=== PATIENT | female | born 1965 | race Two or more races ===

== ENCOUNTER 2017-11-25 06:19 | Day surgery (SDC) | payer BC ==
[~2017-11-25] VITALS: Ht 160 cm; Wt 81.6 kg
[2017-11-25] VITALS (8 sets, daily range): BP systolic 117–135; BP diastolic 66–82
--- NOTE | 2017-11-25 06:45 | Anethesia Preoperative Eval ---
Anesthesia Pre-op PMH/ROS General Date of Evaluation: November 25, 2017 Time of Evaluation: 07:11 Anesthesiologist: ASA Score: ASA 2 Mallampati Score Class I : Soft palate, uvula, fauces, pillars visible Class II: Soft palate, uvula, fauces visible Class III: Soft palate, base of uvula visible Class IV: Only hard plate visible Mallampati Classification: Class II Surgeon: brooke Diagnosis: abd pain Surgical Procedure: egd and colonoscopy Anesthesia History: none Family History: no anesthesia problems Allergies: Coded Allergies: No Known Allergies (Unverified , 11/22/17) Medications: see eMAR Past Medical History Cardiovascular: Reports: HTN; Denies: CAD, [place], valve dz, arrhythmia, other Gastrointestinal/Genitourinary: Reports: GERD; Denies: CRI, ESRD, other Neurologic/Psychiatric: Denies: dementia, CVA, depression/anxiety, TIA, other Endocrine: Denies: DM, hypothyroidism, steroids, other HEENT: Denies: cataract (L), cataract (R), glaucoma, [place] (L), [place] (R), other Hematology/Immune: Denies: anemia, DVT, bleeding disorder, other Musculoskeletal/Integumentary: Denies: OA, RA, DJD, DDD, edema, other PSxH Narrative: c/s Anesthesia Pre-op Phys. Exam Physician Exam see chart Constitutional: NAD Cardiovascular: RRR Respiratory: CTA Airway Exam Mallampati Score: Class II MO: full ROM: full Teeth: intact Anesthesia Pre-op A/P Labs see chart Studies Pre-op Studies: EKG Risk Assessment & Plan Assessment: asa 2 Plan: MAC Status Change Before Surgery: No Pre-Antibiotics Drug: n/a Shira Harman M.D. November 25, 2017 06:45
[2017-11-25] MEDS ORDERED: BP MEDS (06:59)
[2017-11-25] MEDS ORDERED: Propofol 200mg/20ml IV ONE (07:00)
[2017-11-25] MEDS ORDERED: LR 1000ml 1,000 ML IVLG SCH ×2 (07:00→08:26)
[2017-11-25] MEDS ORDERED: Lidocaine 1% MPF 10mg/ml 5ml ONE (07:00)
[2017-11-25] MEDS ORDERED: LR 1000ml ONE (07:00)
--- NOTE | 2017-11-25 07:18 | Short Stay Surgery H&P ---
History of Present Illness History of Present Illness Chief Complaint please see typed H&P HPI Danielle Winter is a 52 year old female who was admitted on for GERD Patient History Allergies: Coded Allergies: No Known Allergies (Unverified , 11/22/17) Medication History Miscellaneous Medications [Bp Meds], (Reported) Physical Exam Vital Signs Last Vital Signs Date Time Temp Pulse Resp B/P (MAP) Pulse Ox O2 Delivery O2 Flow Rate FiO2 11/25/17 07:04 97.2 75 20 132/66 95 Room Air 97.2 Plan Attestation Are the patient's medical conditions optimized for surgery? GOPI CASTANON November 25, 2017 07:18
--- NOTE | 2017-11-25 07:23 | Pre-Procedure Note/Attestation ---
Pre-Procedure Note/Attestation Complete Prior to Procedure Planned Procedure: not applicable Procedure Narrative: egd/colon Indications for Procedure Pre-Operative Diagnosis: GERD, Screening Attestation I attest that I discussed the nature of the procedure; its benefits; risks and complications; and alternatives (and the risks and benefits of such alternatives ), prior to the procedure, with the patient (or the patient's legal players club representative). I attest that, if there was a reasonable possibility of needing a blood transfusion, the patient (or the patient's legal players club representative) was given the [facility] standardized written summary, pursuant to the Skyler [place] Blood Safety Act ([place] Health and Safety Code # 1645, as amended). I attest that I re-evaluated the patient just prior to the surgery and that there has been no change in the patient's H&P, except as documented below: GOPI CASTANON November 25, 2017 07:23
--- NOTE | 2017-11-25 08:14 | Endoscopy Procedure Note ---
Endoscopy Procedure Note General Indication for Procedure: GERD, Screen Procedures Performed: EGD, colonoscopy Operative Findings/Diagnosis: GERD, HH, desc polyp, rhoid Specimen: yes Pt Tolerated Procedure Well: Yes Estimated Blood Loss: none Anesthesia Anesthesiologist: Dr. Harman Anesthesia: MAC Medications Medication Given: see anesthesia record Inserted Devices Implant(s) used?: No GI Core Measures 50 yrs or older w/o bx or poly: Yes 10yrs. F/U not recommended: No If not recommended, why?: Above average risk 10 yrs. F/U needed: No 18 years or older w/prev. colo: No <3yrs. since last colonoscopy: No Med reason:<3 yrs.: System Reason:<3 yrs.: Last colonoscopy >= to 3yrs: Yes GOPI CASTANON November 25, 2017 08:14
--- NOTE | 2017-11-25 08:15 | Brief Operative Note ---
Immediate Post Operative Note Operative Note Chief Complaint: STEWART, screen Pre-op Diagnosis: GERD, Screening Procedure: EGD/bx, colon, snare Post-op Diagnosis: GERD, HH, Polyp at 40 in desc, rhoid, normal TI to 5 cm Post-op Diagnosis: same as pre-op Surgeon: brooke Anesthesiologist: Specimen: yes Complications: none Condition: stable Fluids: recorded Estimated Blood Loss: none Drains: none Implant(s) used?: No GOPI CASTANON November 25, 2017 08:15
--- NOTE | 2017-11-25 08:26 | Immediate Post-Op Evaluation ---
Immediate Post-Op Evalulation Immediate Post-Op Evalulation Procedure: egd and colonoscopy Date of Evaluation: November 25, 2017 Time of Evaluation: 08:13 IV Fluids: LR 500ml Blood Products: 0 Estimated Blood Loss: 0 Urinary Output: 0 Blood Pressure Systolic: 117 Blood Pressure Diastolic: 67 Pulse Rate: 71 Respiratory Rate: 16 O2 Sat by Pulse Oximetry: 94 Pain Score (1-10): 1 Nausea: No Vomiting: No Complications none Patient Status: awake, patent, none Hydration Status: adequate Drug: n/a Shira Harman M.D. November 25, 2017 08:26
--- NOTE | 2017-11-25 21:30 | Procedure Note ---
DATE OF PROCEDURE: 11/25/2017 GASTROENTEROLOGY PROCEDURE REPORT PROCEDURE: Upper gastrointestinal endoscopy with biopsy as well as screening colonoscopy with snare polypectomy. PRE-ENDOSCOPIC DIAGNOSES: 1. Symptoms began of refractory gastroesophageal reflux disease. 2. Need for screening colonoscopy. POST-ENDOSCOPIC DIAGNOSES: 1. A 2 to 3 cm hiatal hernia. 2. Gastroesophageal reflux disease with two linear erosions versus shallow ulcerations in the lower esophagus. 3. Status post random biopsy of the duodenum and the antrum. 4. Screening colonoscopy notable for a 4 to 5 mm pedunculated polyp in the descending colon and also a normal terminal ileum for about 5 cm. 5. Status post cold snare polypectomy of the descending colon polyp. 6. Mild internal hemorrhoids. DESCRIPTION OF PROCEDURE: The procedure, its risks, indications, alternatives, and possible complications including, but not limited to bleeding, infection, perforation, , and anesthesia complications were explained to the patient and an informed consent was obtained. The time-out was called and a diagnostic upper endoscope was introduced through the oropharynx and advanced to the duodenum. The endoscope was then gradually withdrawn and the mucosa examined carefully. The biopsies were obtained as described. The rectal exam was then done. The colonoscope was introduced into the rectum and advanced to 5 cm into the terminal ileum. The colonoscope was then gradually withdrawn and the mucosa examined carefully. Findings and procedures are as described above. Retroflex view of the rectum revealed mild internal hemorrhoids. The colonoscope was removed. The patient was sent to recovery in good condition. COMPLICATIONS: None. RECOMMENDATIONS: 1. Follow up biopsy results. 2. Reflux precautions. 3. Zantac 300 mg p.o. at bedtime. 4. Outpatient followup in two weeks. Thank you for asking me to participate in the care of this patient. . Omid Evans M.D. DR: NAT JOB#: [id number] CC:
[2017-11-26 08:31] VITALS: BP 128/77
--- NOTE | 2017-11-26 08:31 | 48 Hour Post Anesthesia Eval ---
Post Anesthesia Evaluation Procedure: egd and colonoscopy Date of Evaluation: November 25, 2017 Time of Evaluation: 09:20 Blood Pressure Systolic: 128 0: 77 Pulse Rate: 70 Respiratory Rate: 18 Temperature (Fahrenheit): 97 O2 Sat by Pulse Oximetry: 99 Airway: patent Nausea: No Vomiting: No Pain Intensity: 0 Hydration Status: adequate Mental Status/LOC: patient returned to baseline Follow-up care needed: ready to discharge Shira Harman M.D. November 26, 2017 08:31
== END 2017-11-25 09:25 | disposition home or self-care (01) ==
LOC: GAS 06:19
DX: Z12.11 Encounter for screening for malignant neoplasm of colon (principal); K44.9 Diaphragmatic hernia without obstruction or gangrene; K64.8 Other hemorrhoids; I10 Essential (primary) hypertension; E66.9 Obesity, unspecified; Z68.31 Body mass index [BMI] 31.0-31.9, adult; K29.50 Unspecified chronic gastritis without bleeding; K21.0 Gastro-esophageal reflux disease with esophagitis
CPT/HCPCS: 43239; 45380; J2704; J7120; 94003; 94150

== ENCOUNTER 2019-02-17 09:33 | Day surgery (SDC) | payer BC ==
[~2019-02-17] VITALS: Ht 154.9 cm; Wt 86.2 kg
[2019-02-17] VITALS (13 sets, daily range): BP systolic 89–124; BP diastolic 55–78
--- NOTE | 2019-02-17 06:55 | Pre-Procedure Note/Attestation ---
Pre-Procedure Note/Attestation Complete Prior to Procedure Planned Procedure: left Procedure Narrative: left knee scope, medial meniscectomy Indications for Procedure Pre-Operative Diagnosis: left knee medial meniscus tear Attestation I attest that I discussed the nature of the procedure; its benefits; risks and complications; and alternatives (and the risks and benefits of such alternatives ), prior to the procedure, with the patient (or the patient's legal senior sales representative). I attest that, if there was a reasonable possibility of needing a blood transfusion, the patient (or the patient's legal senior sales representative) was given the [facility] standardized written summary, pursuant to the [place] Blood Safety Act ([place] Health and Safety Code # 1645, as amended). I attest that I re-evaluated the patient just prior to the surgery and that there has been no change in the patient's H&P, except as documented below:none Ángel Rodriguez MD Feb 17, 2019 06:55
[~2019-02-17 09:33] MED LIST: BP MEDS; TENORMIN25 MG ORAL; ceFAZolin sod 1 GM in NS 55 ML IVPB ONE; celeBREX 200mg Cap **SURGERY PATIENTS ONLY ORAL ONE; oxyCONTIN 20mg tab ORAL ONE
[2019-02-17] MEDS ORDERED: oxyCONTIN 20mg tab ORAL ONE (10:37)
[2019-02-17] MEDS ORDERED: celeBREX 200mg Cap **SURGERY PATIENTS ONLY ORAL ONE (10:38)
[2019-02-17] MEDS ORDERED: D5 1/2NS 1,000 ML IV SCH (10:45)
[2019-02-17] MEDS ORDERED: HYDROmorphone 1mg/ml Carpuject SUBQ PRN (10:45)
[2019-02-17] MEDS ORDERED: Tylenol #3 tab (300mg/30mg) ORAL PRN (10:45)
[2019-02-17] MEDS ORDERED: HYDROcodone/Acetamin 5/325 tab ORAL PRN (10:45)
[2019-02-17] MEDS ORDERED: Ropivacaine 5mg/ml Vial 30ml INJ ONE (10:48)
--- NOTE | 2019-02-17 10:50 | Anethesia Preoperative Eval ---
Anesthesia Pre-op PMH/ROS General Date of Evaluation: Feb 17, 2019 Anesthesiologist: Davis ASA Score: ASA 2 Mallampati Score Class I : Soft palate, uvula, fauces, pillars visible Class II: Soft palate, uvula, fauces visible Class III: Soft palate, base of uvula visible Class IV: Only hard plate visible Mallampati Classification: Class II Surgeon: Michael Diagnosis: Left knee pain Surgical Procedure: Left knee arthroscopy Anesthesia History: none Family History: no anesthesia problems Allergies: Coded Allergies: No Known Allergies (Unverified , 02/16/19) Medications: see eMAR Patient NPO?: Yes NPO Date: Feb 16, 2019 NPO Time: 22:00 Past Medical History Cardiovascular: Reports: HTN; Denies: CAD, DC, valve dz, arrhythmia, other Pulmonary: Denies: asthma, COPD, JOSE, other Gastrointestinal/Genitourinary: Denies: GERD, CRI, ESRD, other Neurologic/Psychiatric: Denies: dementia, CVA, depression/anxiety, TIA, other Endocrine: Denies: DM, hypothyroidism, steroids, other HEENT: Denies: cataract (L), cataract (R), glaucoma, [place] (L), [place] (R), other Hematology/Immune: Denies: anemia, DVT, bleeding disorder, other Musculoskeletal/Integumentary: Denies: OA, RA, DJD, DDD, edema, other PSxH Narrative: c/s Anesthesia Pre-op Phys. Exam Physician Exam Last Vital Signs Date Time Temp Pulse Resp B/P (MAP) Pulse Ox O2 Delivery O2 Flow Rate FiO2 02/17/19 10:43 Room Air 02/17/19 10:17 97.0 76 20 118/62 97 Constitutional: NAD Cardiovascular: RRR Respiratory: CTA Airway Exam Mallampati Score: Class II MO: full ROM: full Anesthesia Pre-op A/P Labs see chart Studies Pre-op Studies: EKG - sr Risk Assessment & Plan Assessment: ASA II Plan: GA Status Change Before Surgery: No Pre-Antibiotics Drug: Ancef 2g Given Within 1 Hr of Incision: Yes Mile Mejia MD Feb 17, 2019 10:50
[2019-02-17] MEDS ORDERED: Midazolam 2mg/2ml Inj ONE (10:52)
[2019-02-17] MEDS ORDERED: fentaNYL 100 mcg/2 mL IV ONE (10:52)
[2019-02-17] MEDS ORDERED: Lidocaine 1% MPF 10mg/ml 5ml ONE (10:52)
[2019-02-17] MEDS ORDERED: Propofol 200mg/20ml IV ONE (10:52)
[2019-02-17] MEDS ORDERED: Dexamethasone 4mg/ml vial ONE (10:53)
[2019-02-17] MEDS ORDERED: LR 1000ml 1,000 ML IVLG SCH (10:54)
[2019-02-17] MEDS ORDERED: Metoclopramide 10mg/2ml Inj IVP PRN (11:00)
[2019-02-17] MEDS ORDERED: LORazepam Inj 2mg/ml 1ml IV PRN (11:00)
[2019-02-17] MEDS ORDERED: fentaNYL 100 mcg/2 mL IV PRN (11:00)
[2019-02-17] MEDS ORDERED: LR 1000ml ONE (11:00)
[2019-02-17] MEDS ORDERED: Midazolam 2mg/2ml Inj IVP PRN (11:00)
[2019-02-17] MEDS ORDERED: Ketorolac 30mg Inj IV PRN (11:00)
[2019-02-17] MEDS ORDERED: Sterile Water Irrig 1000ml IRRIG ONE (11:00)
[2019-02-17] MEDS ORDERED: Hydromorphone 0.5mg/0.5ml inj IVP PRN (11:00)
[2019-02-17] MEDS ORDERED: DiphenhydrAMINE 50mg/ml Inj IVP PRN (11:00)
[2019-02-17] MEDS ORDERED: NS Irrig 4000ml IRRIG ONE ×2 (11:47→12:00)
[2019-02-17] MEDS ORDERED: Ketamine 500mg Inj ONE (11:55)
--- NOTE | 2019-02-17 12:11 | Brief Operative Note ---
Immediate Post Operative Note Operative Note Chief Complaint: left knee pain Pre-op Diagnosis: left knee meniscus tear Procedure: left knee scope meniscectomy and chondroplasty Post-op Diagnosis: same as pre-op Findings: consistent w/pre-op dx studies Surgeon: md collette Machine Installer: tim rosas Anesthesiologist: md edson Anesthesia: general Specimen: none Complications: none Condition: stable Fluids: ns Estimated Blood Loss: minimal Drains: none Implant(s) used?: No Tanika Rosas Feb 17, 2019 12:11
--- NOTE | 2019-02-17 12:21 | Immediate Post-Op Evaluation ---
Immediate Post-Op Evalulation Immediate Post-Op Evalulation Procedure: Left knee arthroscopy Date of Evaluation: Feb 17, 2019 Time of Evaluation: 12:21 IV Fluids: 800 Blood Products: 0 Estimated Blood Loss: min Urinary Output: 0 Blood Pressure Systolic: 98 Blood Pressure Diastolic: 55 Pulse Rate: 84 Respiratory Rate: 16 O2 Sat by Pulse Oximetry: 93 Temperature (Fahrenheit): 97.6 Pain Score (1-10): 0 Nausea: No Vomiting: No Complications 0 Patient Status: awake, reacts, patent, none Hydration Status: adequate Drug: Ancef 2g Given Within 1 Hr of Incision: Yes Mile Mejia MD Feb 17, 2019 12:21
--- NOTE | 2019-02-17 12:21 | 48 Hour Post Anesthesia Eval ---
Post Anesthesia Evaluation Procedure: Left knee arthroscopy Date of Evaluation: Feb 17, 2019 Airway: patent Nausea: No Vomiting: No Hydration Status: adequate Cardiopulmonary Status: at baseline Mental Status/LOC: patient returned to baseline Post-Anesthesia Complications: 0 Follow-up care needed: ready to discharge Mile Mejia MD Feb 17, 2019 12:21
--- NOTE | 2019-02-17 17:30 | Operative Note - Dictated ---
DATE OF OPERATION: 02/17/2019 PREOPERATIVE DIAGNOSIS: Left knee posterior horn medial meniscus tearing. POSTOPERATIVE DIAGNOSES: 1. Left knee complex tear of the posterior horn body of the medial meniscus. 2. 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 3. Left knee patellofemoral arthritis with grade 4 chondromalacia measuring 1 x 1.5 cm in the trochlear groove with unstable chondral flap as well as diffuse degeneration on the medial lateral patellar facet. PROCEDURE: 1. Left knee arthroscopy and extensive intra-articular shaving. 2. Left knee partial medial meniscectomy. 3. Left knee patellofemoral as well as medial femoral chondroplasty. SURGEON: Ángel Rodriguez M.D. STUDENT MINISTRY PASTOR: Tanika Palma PA-C. Canoe Inspector Final was present during the actual operative portion of the case and was important and essential part of the operation. During the operation, the pizza hut assistant held and operated the arthroscopic camera for visualization, assisted by manipulating the leg to help with visualization, and helped with essential parts of the repair process as necessary such as operating surgical instruments under surgeon supervision, suture management, and wound closures. ANESTHESIOLOGIST: Dr. Cannon. ANESTHESIA: General LMA anesthesia. TOURNIQUET TIME: 30 minutes. ESTIMATED BLOOD LOSS: Minimal. COMPLICATIONS: None. SURGICAL INDICATION: The patient is a 53-year-old female, who sustained the above injury to her knee. The patient was treated non-operative initially, but this did not alleviate the patients symptoms. Therefore, after discussing all non-surgical and surgical options, and discussing all foreseeable risk and benefits of surgery, the patient opted for surgical treatment as described above. PATIENT POSITIONING: The patient was brought to the operating room table and placed supine. All pressure points were well padded. General Anesthesia was induced and a well padded tourniquet was placed on the thigh. The lateral post was placed and positioned to allow for opening of the medial compartment of the knee without placing pressure over the fibular head. Patients entire leg was prepped and draped in the usual sterile fashion. Time out was performed and preop abx was given and after exsanguinating the lower extremity, the tourniquet was inflated to 275 mm of mercury. EXAMINATION OF THE KNEE UNDER ANESTHESIA: Before prepping and draping the knee and while the patient was relaxed under general anesthesia, the knee was examined for ROM, and anterior and posterior, medial and lateral, posterolateral, and posteromedial instability. Pivot shift testing was performed. There was no evidence of loss of motion or instability and the pivot shift testing was negative. PORTAL PLACEMENT: The lateral portal was placed with the knee flexed to 90 degrees at the level of inferior border of the patella in line with the lateral border of the patella. A cm skin incision was made with an eleven blade, and using a blunt obturator, the capsule was gently penetrated. Sterile saline solution was then infused inside the knee with the aid of a pump set at 35 mm mercury pressure. Under direct visualization, placement of the medial portal was preliminary judged using a spinal needle, and it was subsequently established using the same technique as the lateral portal. Care was given not to injure the cutaneous branches of the medial Saphenous nerve or the subcutaneous veins. DIAGNOSTIC ARTHROSCOPY: The suprapatellar patellar pouch was visualized. There was no evidence of scar tissue or loose fragments. The medial and lateral patellar facets and trochlear groove articular cartilage was visualized. There was some chondral damage, which were degenerative over the medial and lateral patella with some fraying of the cartilage. The medial plica shelf and the corresponding medial femoral condyle articular cartilage were visualized. In the central trochlear, there was 1 x 1.5 cm central trochlear groove, cartilage loss, which was grade 4 with unstable chondral flap. There was no significantly thickening of the medial plica shelf and there were no kissing? lesion over the medial femoral condyle. The lateral gutter and the posterolateral corner of the knee were visualized. There were no loose bodies, and the popliteus tendon and other structures of the posterolateral corner of the knee were intact intra-articularly. At this point, the knee was placed in the figure of four position and the lateral compartment was entered. The lateral femoral condyle, lateral tibial plateau, and the anterior, body, and the posterior horn of the lateral meniscus were visualized and probed. The articular surfaces were intact and devoid of articular cartilage damage. The lateral meniscus was completely intact both on its undersurface and on the top. The knee was then placed at 90 degree and the ACL and PCL were visualized and probed. The ACL was completely intact on visualization and probing, and it had excellent tension. The PCL was completely intact on visualization and probing and it had excellent tension. The medial compartment was then entered and the medial femoral condyle, medial tibial plateau, and the anterior, body, and the posterior horn of the medial meniscus were visualized and probed. There was a chondral lesion over the medial femoral chondral measuring 2 x 3 cm. This was grade 3/4 chondromalacia. There was a complex tear of the posterior horn body of the medial meniscus including vertical and horizontal cleavage tear involving 30% of the medial meniscus. The medial gutter was visualized. There was no evidence of defect or loose fragments. The scope was then brought back to the patella femoral compartment. OPERATIVE ARTHROSCOPY: At this point, all loose debris and fragments were removed with the use of suction motorized shaver. Specific attention was given to assure all visible loose fragments were irrigated out of the knee joint with pump inflow and cannula outflow system. For patella femoral chondroplasty, the frayed articular cartilage of the undersurface of the patella and the trochlear groove were debrided using a motorized shaver. Suction was used to pull in the loose fragments and flaps of the cartilage and to minimize damage to the intact and well attached portion of the cartilage. This allowed for a smooth surface for the articular cartilage gliding. For medial meniscectomy, at this point, attention was given to the medial meniscus. Using combination of baskets and porsha, the torn portion of the medial meniscus was removed. Attention was given to remove all displaced and unstable portion of the medial meniscus while maintaining as much of the functional portion of the meniscus as possible. Approximately, 30% of the posterior horn body of the medial meniscus was removed in this fashion. The transition between the meniscectomy portion and intact portion of the meniscus was smoothed out with combination of small baskets and porsha. Excellent transition zone was obtained in this fashion. For medial compartment chondroplasty, care was given to the area of cartilage damage in the medial compartment. The frayed and loose fragments of articular cartilage were debrided using a motorized shaver. Suction was used to pull in the loose fragments and flaps of the cartilage and to minimize damage to the intact and well attached portion of the cartilage. This allowed for smooth surfaces for the articular cartilage. CONDITION AT DISCHARGE FROM OPERATING ROOM: The knee was irrigated with copious amount of normal saline at the end of the procedure. The scope was removed and the water was drained. The skin edges were re-approximated and sterile dressing was applied. All lap count and instrument counts were correct. Patient tolerated the procedure well without complications and was taken to the recovery room in stable conditions. Ángel Rodriguez M.D. DR: FADI JOB#: [id number] CC:
== END 2019-02-17 14:45 | disposition home or self-care (01) ==
LOC: SUR 09:33
DX: S83.242A Other tear of medial meniscus, current injury, left knee, initial encounter (principal); M94.262 Chondromalacia, left knee; M17.12 Unilateral primary osteoarthritis, left knee; I10 Essential (primary) hypertension; K21.9 Gastro-esophageal reflux disease without esophagitis; E78.00 Pure hypercholesterolemia, unspecified; X58.XXXA Exposure to other specified factors, initial encounter; Y92.9 Unspecified place or not applicable
CPT/HCPCS: 29881; 97161; J0690; J1100; J1170; J1885; J2250; J2405; J2704; J2765; J2795; J3010; J3490; 94003; 94150